=== PATIENT | male | born 1995 | race Caucasian/White ===

== ENCOUNTER 2019-06-24 23:01 | Emergency (ER) | payer SELFPAY ==
[~2019-06-24] VITALS: Ht 180.3 cm; Wt 86.4 kg
[2019-06-24 23:05] VITALS: TEMP 96.7
[2019-06-25 00:09] LABS: CREATININE, serum 0.91 (0.66-1.25)
[2019-06-25 00:12] VITALS: BP 115/83
[2019-06-25 00:26] LABS: POTASSIUM 3.6 mmol/L (3.4-5.0)
[2019-06-25] MEDS ORDERED: MOBIC15 MG PO (00:57)
[2019-06-25 01:10] VITALS: PULSE 49
== END 2019-06-25 01:10 | disposition home or self-care (01) ==
LOC: COL.ER 23:01
PROVIDERS: Nurse Practitioner
DX: F10.129 Alcohol abuse with intoxication, unspecified (principal); F32.9 Major depressive disorder, single episode, unspecified; F12.90 Cannabis use, unspecified, uncomplicated; Y90.4 Blood alcohol level of 80-99 mg/100 ml
CPT/HCPCS: J2405; J7030